=== PATIENT | male | born 1945 | race Asian ===

== ENCOUNTER 2018-10-14 06:45 | Day surgery (SDC) | payer MEDICARE, OTHER ==
[~2018-10-14] VITALS: Ht 157.5 cm; Wt 58.2 kg
[~2018-10-14 06:45] MED LIST: ALLO100T PO; ASPI81TA42 PO; COLC0.6T68 PO; DICLOFENAC SODIUM 0.1% 2.5 ML OPHTHALMIC SOLUTION OD ONE; DICLOFENAC SODIUM 0.1% 2.5 ML OPHTHALMIC SOLUTION ONE; FERR324T4 PO; FOLI1TAB15 PO; HYDR25TA PO; ISOS10TA16 PO; LISI20TA PO; MOXIFLOXACIN HCL 0.5% 3 ML OPHTHALMIC SOLUTION OD ONE; MOXIFLOXACIN HCL 0.5% 3 ML OPHTHALMIC SOLUTION ONE; PHENYLEPHRINE HCL 2.5% 2 ML OPHTHALMIC SOLUTION ONE; RINGERS SOLUTION,LACTATED 500 ML IV ONE; SIMV20TA6 PO; TROPICAMIDE 1% 2 ML OPHTHALMIC SOLUTION ONE
[2018-10-14] MEDS ORDERED: TETRACAINE HCL VISCOUS 0.5% 0.6 ML OPHTHALMIC SOLUTION OS ONE (06:46)
[2018-10-14] MEDS ORDERED: POVIDONE-IODINE 10% 15 ML SOLUTION UD TP ONE (06:46)
[2018-10-14] MEDS ORDERED: LIDOCAINE/PF 1% 2 ML VIAL IV ONE (06:46)
[2018-10-14] MEDS ORDERED: DEXAMETHASONE SOD PHOS 4 MG/ML VIAL IVP ONE (06:46)
[2018-10-14] MEDS ORDERED: HYALURONATE SODIUM 12 MG/ML 0.8 ML SYRINGE IO ONE (06:46)
[2018-10-14] MEDS ORDERED: HYALURONATE SOD/CHONDROITIN SOD 0.5 ML VIAL IO ONE (06:46)
[2018-10-14] MEDS: TROPICAMIDE 1% 2 ML OPHTHALMIC SOLUTION OD SCH ×2 (07:47→07:52)
[2018-10-14] MEDS: PHENYLEPHRINE HCL 2.5% 2 ML OPHTHALMIC SOLUTION OD SCH ×2 (07:48→07:52)
[2018-10-14 07:53] LABS: GLUCOMETER DEV NAME(LOC) SDS 5; GLUCOSE,POINT OF CARE 128 MG/DL (70-110)
[2018-10-14] MEDS ORDERED: LOSA50TA25 PO (08:02)
[2018-10-14] MEDS ORDERED: METF-960 PO (08:02)
[2018-10-14] MEDS ORDERED: ALLO300 PO (08:05)
[2018-10-14] MEDS ORDERED: ISOS10TA16 PO (08:05)
[2018-10-14] MEDS ORDERED: METO50 PO (08:05)
[2018-10-14] MEDS ORDERED: MIDAZOLAM HCL 2 MG/2 ML VIAL IVP ONE (12:00)
[2018-10-14] MEDS ORDERED: FentaNYL CITRATE-PF 100 MCG/2 ML VIAL IVP ONE (12:00)
== END 2018-10-14 11:15 | disposition home or self-care (01) ==
LOC: SURGERY 06:45
PROVIDERS: ATTEND Specialist
DX: E11.36 Type 2 diabetes mellitus with diabetic cataract (principal); H25.011 Cortical age-related cataract, right eye; I10 Essential (primary) hypertension; M19.90 Unspecified osteoarthritis, unspecified site; E78.00 Pure hypercholesterolemia, unspecified; M10.9 Gout, unspecified; H54.7 Unspecified visual loss; Z86.73 Personal history of transient ischemic attack (TIA), and cerebral infarction without residual deficits; Z79.82 Long term (current) use of aspirin; Z79.01 Long term (current) use of anticoagulants; Z79.84 Long term (current) use of oral hypoglycemic drugs; Z79.899 Other long term (current) drug therapy
CPT/HCPCS: 65785; 66984; 82962; 93005; C1780; J2250; J3010; J7120; J1100; J3490